=== PATIENT | male | born 1950 | race Caucasian/White ===

== ENCOUNTER 2019-05-01 07:32 | Day surgery (SDC) | payer OTHER ==
[2019-04-30 18:28] VITALS: BMI 33.9
[~2019-05-01] VITALS: Ht 157.5 cm; Wt 83.5 kg
[2019-05-01] VITALS (10 sets, daily range): BP systolic 107–146; BP diastolic 54–69; PULSE 64–72; RESP 14–19; Ht 157.5 cm; Wt 83.5 kg
[~2019-05-01 07:32] MED LIST: ALLO300T2 PO; CARBACHOL 0.01% 1.5 ML OPH INJ RIGHT EYE ONE; DICLOFENAC 0.1% 2.5 ML OPH OPER SCH; LIDOCAINE 1% (MPF) 5 ML VIAL INJ ONE; MOXIFLOXACIN 0.5% 3 ML OPH OPER SCH; PHENYLephrine 10% 5 ML OPH OPER SCH; TETRACAINE 0.5% 4 ML OPH RIGHT EYE ONE; TROPICAMIDE 1% 15 ML OPH OPER SCH
[2019-05-01] MEDS ORDERED: EPHEDrine 25 MG/5 ML SYG IV PRN (08:30)
[2019-05-01] MEDS ORDERED: morphine 2 MG INJ IV PRN (08:30)
[2019-05-01] MEDS ORDERED: LABETALOL HCL 20MG INJ IV PRN (08:30)
[2019-05-01] MEDS ORDERED: LACTATED RINGER'S 1,000 ML IV SCH (08:30)
[2019-05-01] MEDS ORDERED: FENTAnyl 50 MCG/ML VIAL IV PRN (08:30)
[2019-05-01] MEDS ORDERED: OXYCODONE/ACETAMINOPHEN (5/325) TAB PO PRN (08:30)
[2019-05-01] MEDS ORDERED: ONDANSETRON 4 MG INJ IV PRN (08:30)
[2019-05-01] MEDS ORDERED: HYDROmorphONE 1 MG/5 ML IV SYRINGE IV PRN (08:30)
[2019-05-01] MEDS ORDERED: LIDOCAINE 1% (MPF) 5 ML VIAL ONE (08:49)
[2019-05-01] MEDS ORDERED: CARBACHOL 0.01% 1.5 ML OPH INJ ONE (08:49)
[2019-05-01] MEDS ORDERED: TETRACAINE 0.5% 4 ML OPH ONE (08:50)
[2019-05-01] MEDS ORDERED: EPINEPHrine 1 MG INJ ONE (08:50)
[2019-05-01] MEDS ORDERED: LIDOCAINE 1% (MPF) 5 ML VIAL INJ ONE (09:00)
[2019-05-01] MEDS ORDERED: TETRACAINE 0.5% 4 ML OPH RIGHT EYE ONE (09:12)
[2019-05-01] MEDS ORDERED: SODIUM HYALURONATE 14 MG/ML SYG IO ONE (09:12)
[2019-05-01] MEDS ORDERED: CARBACHOL 0.01% 1.5 ML OPH INJ RIGHT EYE ONE (09:12)
[2019-05-01] MEDS ORDERED: MIDAZOLAM 1 MG/ML 2 ML INJ ONE (09:19)
[2019-05-01] MEDS ORDERED: FENTAnyl 50 MCG/ML VIAL ONE (09:19)
[2019-05-01] MEDS ORDERED: ONDANSETRON 4 MG INJ ONE (09:42)
[2019-05-01] MEDS ORDERED: METOCLOPRAMIDE 10 MG INJ ONE (09:42)
[2019-05-01] MEDS ORDERED: TOBRAMYCIN/DEXAMETH 3.5 GM OPH OINT OPER ONE (09:49)
[2019-05-01] MEDS ORDERED: TOBRAMYCIN/DEXAMETH 3.5 GM OPH OINT ONE (09:59)
[2019-05-01] MEDS ORDERED: SODIUM HYALURONATE 14 MG/ML SYG ONE (09:59)
[2019-05-01] MEDS ORDERED: ACETAZOLAMIDE 250 MG TAB ONE (11:11)
[2019-05-01] MEDS ORDERED: ACETAZOLAMIDE 250 MG TAB PO SCH (11:30)
== END 2019-05-01 11:44 | disposition home or self-care (01) ==
LOC: SDS 07:32
PROVIDERS: ATTEND Ophthalmology
DX: H25.11 Age-related nuclear cataract, right eye (principal); M10.9 Gout, unspecified
CPT/HCPCS: J0171; J2250; J2405; J2765; J3010; V2632